=== PATIENT | male | born 1985 | race Caucasian/White ===

== ENCOUNTER 2017-10-28 16:28 | Emergency (ER) | payer MEDICARE, MEDICAID ==
--- NOTE | 2017-10-28 16:39 | Emergency Department Record ---
History of Present Illness - General Chief Complaint: Chest Pain Stated Complaint: CHEST PAIN Time Seen by Provider: 10/28/17 16:33 Source: Patient, Family Mode of Arrival: Ambulatory Limitations: No limitations - History of Present Illness Initial Comments: 32 you male presents with a complaint of chest pain for the 4 days. The pain is middle to right side of the chest. The patient has a history of cystic fibrosis. He has not been coughing. No shortness of breath or fever. The pain is constant. It is there all day and then again upon waking in the mornings. He states it hurts more to move and better if still. The pain is more to the right and not on the left. No trauma or injury. No back pain. No radiation of the pain. No abdominal pain. No changes in appetite, no NVD, no changes in activity or limitations. No calf pain or leg swelling. No history of cardiac disease or DVT. No current PCP. His pulmonary doctors are at [facility]. Andi was adopted with minimal knowledge of FHx. His mother does not believe there is any history of CAD in his biological parents. MD Complaint: Chest pain -: Days(s) (4) Onset: Other (Gradual onset and constant) Pain Location: Substernal, Right chest Pain Radiation: Other (right chest) Quality: Aching Consistency: Constant Improves With: Rest Worsens With: Movement, Palpation Other Symptoms: Other (No other symptoms) Treatments Prior to Arrival: None - Related Data Home Medications Medication Instructions Recorded Confirmed Last Taken Benztropine Mesylate 1 mg PO BID 10/28/17 10/28/17 10/28/17 Lipase/Protease/Amylase [Pertzye 3 each PO BID 10/28/17 10/28/17 10/28/17 16,000 Unit Capsule] Mirtazapine 7.5 mg PO QHS 10/28/17 10/28/17 10/27/17 Allergies Allergy/AdvReac Type Severity Reaction Status Date / Time No Known Drug Allergies Allergy Verified 10/28/17 16:34 Review of Systems Constitutional: Denies: Chills, Fever, Malaise, Weakness Eyes: Denies: Eye discharge, Eye pain, Photophobia, Vision change ENT: Denies: Congestion, Throat pain Respiratory: Denies: Cough, Dyspnea, Hemoptysis, Stridor, Wheezes Cardiovascular: Reports: Chest pain. Denies: Arrhythmia, Edema, Palpitations, Syncope Endocrine: Denies: Fatigue, Polydipsia, Polyuria Gastrointestinal: Denies: Abdominal pain, Diarrhea, Nausea, Vomiting Genitourinary: Denies: Dysuria, Frequency, Hematuria Musculoskeletal: Denies: Arthralgia, Back pain, Joint swelling, Myalgia Skin: Denies: Bruising, Change in color, Rash Neurological: Denies: Abnormal gait, Confusion, Headache, Vertigo Psychiatric: Denies: Anxiety Hematological/Lymphatic: Denies: Anemia, Blood Clots, Easy bleeding, Easy bruising, Swollen glands Physical Exam - General General Appearance: Alert, Oriented x3, Cooperative, No acute distress, Other ( Well appearing, non ill appearing, no conversational dyspnea) Limitations: No limitations - Head Head exam: Atraumatic, Normocephalic, Normal inspection - Eye Eye exam: Normal appearance. negative: Conjunctival injection, Periorbital swelling, Scleral icterus - ENT ENT exam: Normal exam, Mucous membranes moist, Normal orophraynx Ear exam: Normal external inspection Nasal Exam: Normal inspection Mouth exam: Normal external inspection Teeth exam: Normal inspection Throat exam: Normal inspection. negative: Tonsillar erythema, Tonsillomegaly, Tonsillar exudate, R peritonsillar mass, L peritonsillar mass - Neck Neck exam: Normal inspection. negative: Lymphadenopathy, Meningismus, Tenderness - Respiratory Respiratory exam: Normal lung sounds bilaterally, Chest wall tenderness. negative: Accessory muscle use, Decreased breath sounds, Prolonged expiratory, Rales, Respiratory distress, Rhonchi, Stridor, Wheezes - Cardiovascular Cardiovascular Exam: Regular rate, Normal rhythm, Normal heart sounds. negative : Diastolic murmur, Irregular rhythm, Systolic murmur, Tachycardia Peripheral Pulses: 2+: Radial (R), Radial (L) - GI/Abdominal GI/Abdominal exam: Soft. negative: Tenderness - Rectal Rectal exam: Deferred - exam: Deferred - Extremities Extremities exam: Normal inspection, Full ROM. negative: Calf tenderness, Joint swelling, Pedal edema, Tenderness Image of Full Body: 1 - tender to palpation from the sternal edge laterally, no SQ air palpable, thin bony chest, clear lungs bilaterally, no rash. - Back Back exam: Reports: Normal inspection, Full ROM. Denies: CVA tenderness (R), CVA tenderness (L), Muscle spasm, Rash noted, Tenderness - Neurological Neurological exam: Alert, Oriented X3. negative: Altered - Psychiatric Psychiatric exam: Normal affect, Normal mood - Skin Skin exam: Dry, Intact, Normal color, Warm Course - Reevaluation(s) Reevaluation #1: 10/28/17 16:44 EKG 16:34 NSR rate is 92, intervals are normal, axis is normal, rsr' noted, no acute ST changes. No old for comparison. 10/28/17 16:51 No tachycardia, hypoxia, or fever. The chest is tender to palpation and hurts with position changes. Exam is most consistent with musculoskeletal cause. Andi is PERC negative with very low suspicion for PE 10/28/17 16:57 10/28/17 17:03 No acute changes on the CBC 10/28/17 17:15 The CXR was negative for any acute process. 10/28/17 17:15 The BMP is negative The C-RP and Troponin are negative after 4 days of constant pain. Very low likely pneumonia, CAD, pericarditis, myocarditis, pneumothorax. No rash to suggest shingles. I recommend Motrin for 1-2 days We discussed to return or recheck if not resolved and return sooner if worse 10/28/17 17:25 ESR is 2 DC home stable Medical Decision Making - Lab Data Result diagrams: 10/28/17 16:45 10/28/17 16:45 Disposition Disposition: Discharge Clinical Impression: Chest wall pain Disposition: Home, Self-Care Condition: (1) Good Instructions: Chest Pain (ED) Additional Instructions: Call the number provided for a new Primary Care Doctor Return to the ER if fever, short of breath, cough or any new concerns You may take Motrin as directed for the sore chest Referrals: RONN NEGRETE [Primary Care Provider] - Forms: Patient Portal Access Time of Disposition: 17:18 Quality - Quality Measures Quality Measures: N/A - Blood Pressure Screening Does Patient Have Any of the Following: No Blood Pressure Classification: Pre-Hypertensive BP Reading Systolic Measurement: 125 Diastolic Measurement: 87 Screening for High Blood Pressure: < Pre-Hypertensive BP, F/U Documented > [ [id number]] Pre-Hypertensive Follow-up Interventions: Referral to alternative/primary care provider.
[2017-10-28 16:49] LABS: BASO % 0.7 % (0-6); EOS % 0.9 % (0-6); GRAN % 69.4 % (47-80); HEMATOCRIT 44.4 % (42.0-52.0); LYMPH % 21.5 % (16-45); MEAN CELL VOLUME 89.2 fl (81-97); MEAN CORPUSCULAR HEMOGLOBIN 30.1 pg (27-33); MEAN CORPUSCULAR HGB CONC 33.8 g/dl (32-36); MEAN PLATELET VOLUME 10.6 fl (7.4-10.4); MONO % 7.5 % (0-9); PLATELET COUNT 198 K/uL (130-400); RED BLOOD COUNT 4.98 M/uL (4.40-5.70); RED CELL DISTRIBUTION WIDTH 12.8 % (11.5-14.5); WHITE BLOOD COUNT W/O DIFF 7.5 K/uL (4.2-12.2)
[2017-10-28 17:02] LABS: BLOOD UREA NITROGEN 15 mg/dL (6-20); CREATININE 0.7 mg/dL (0.7-1.2); EST GLOMERULAR FILTRATION RATE > 60 mL/min
[2017-10-28] MEDS ORDERED: IBUPROFEN 400 MG TABLET PO ONE (17:04)
[2017-10-28 17:05] LABS: GLUCOSE,RANDOM 112 mg/dL (74-109)
[2017-10-28 17:09] LABS: C-REACTIVE PROTEIN < 0.04 mg/dL (<0.5)
[2017-10-28 17:25] LABS: ERYTHROCYTE SEDIMENTATION RATE 2 mm/hr (0-15)
--- NOTE | 2017-10-29 07:57 | RADIOLOGY REPORT ---
EXAM: CHEST, TWO VIEWS HISTORY: PATIENT HAS CHEST PAIN. TECHNIQUE: Two views of the chest are provided without comparison studies. FINDINGS: The cardiomediastinal silhouette is within normal limits for size and contour. The kilo appear unremarkable. There is no radiographic evidence of a focal infiltrate, pleural effusion, or pneumothorax. IMPRESSION: NO RADIOGRAPHIC EVIDENCE OF AN ACUTE INTRATHORACIC PROCESS. JOB NUMBER: [id number] MTDD
== END 2017-10-28 17:41 | disposition home or self-care (01) ==
LOC: ER 16:28
DX: R07.89 Other chest pain (principal)
CPT/HCPCS: 71046; 80048; 84484; 85025; 85651; 86140; 93005; 93010; 99284